=== PATIENT | male | born 1970 | race Caucasian/White ===

== ENCOUNTER 2021-09-30 12:21 | Inpatient (IN) ==
[2021-09-30] MEDS ORDERED: *HR* Dextrose 50 % in Water (Syg) 50 ML SYRINGE IVP PRN (15:51)
[2021-09-30] MEDS ORDERED: Dextrose 4 GM Chewable Tablets PO PRN ×2 (15:51)
[2021-09-30] MEDS ORDERED: D5% in Water 1,000 ML IVC PRN (15:51)
[2021-09-30] MEDS: Insulin LISPRO 300 UNITS/3 ML VIAL SUBQ SCH ×2 (20:41→20:45)
[2021-09-30] MEDS: Calcium Acetate 667 MG CAPSULE PO SCH (20:55)
[2021-09-30] MEDS: Acetaminophen 325 MG TABLET PO PRN (20:55)
[2021-09-30] MEDS: *HR* Amiodarone 200 MG TABLET PO SCH (20:56)
[2021-09-30] MEDS: FLUoxetine 20 MG CAPSULE PO SCH (20:56)
[2021-10-01] MEDS: *HR* Heparin 5,000 UNIT/ML VIAL SQ SCH ×4 (00:29→23:11)
[2021-10-01] MEDS: Ondansetron ODT 4 MG TAB.RAPDIS SL PRN (02:50)
[2021-10-01] MEDS ORDERED: *HR* OxyCODONE Immed Rel 5 MG TABLET PO ONE (02:52)
[2021-10-01 08:14] LABS: Basophils % 0.3 %; Eosinophils # 0.4 K/mcL (0.0-0.6); Eosinophils % 3.6 %; Hematocrit 30.4 % (37.5-50.1); Hemoglobin 9.6 g/dL (12.9-16.9); Lymphocytes # 1.5 K/mcL (0.6-4.6); Lymphocytes % 11.9 %; Mean Corpuscular HGB Conc 31.6 g/dL (31.6-35.5); Mean Corpuscular Hemoglobin 31.8 pg (28.0-33.3); Mean Corpuscular Volume 100.7 fL (83.0-100.0); Mean Platelet Volume 11.6 fL (9.4-12.4); Neutrophils # 9.1 K/mcL (1.6-8.9); Platelet Count 142 K/mcL (140-400); Red Blood Count 3.02 M/mcL (4.19-5.50); Red Cell Distribution Width 13.4 % (11.5-14.5); Segmented Neutrophils % 74.2 %; White Blood Count 12.3 K/mcL (4.3-11.1)
[2021-10-01] MEDS: Insulin LISPRO 300 UNITS/3 ML VIAL SUBQ SCH ×4 (08:33→21:15)
[2021-10-01] MEDS: Calcium Acetate 667 MG CAPSULE PO SCH ×5 (08:35→16:53)
[2021-10-01] MEDS: FLUoxetine 20 MG CAPSULE PO SCH ×2 (08:35→23:10)
[2021-10-01] MEDS: Cyanocobalamin (B-12) 1,000 MCG TABLET PO SCH (08:36)
[2021-10-01] MEDS: *HR* HYDROcodone/Acet 5/325 mg TABLET PO PRN ×2 (08:38→20:42)
[2021-10-01] MEDS: *HR* Amiodarone 200 MG TABLET PO SCH ×2 (08:38→23:11)
[2021-10-01] MEDS: Aspirin Enteric Coated 81 MG Tablet PO SCH (08:39)
[2021-10-01] MEDS: allopurinoL 100 MG TABLET PO SCH (08:39)
[2021-10-01 08:58] LABS: Calcium 9.5 mg/dL (8.6-10.3); Potassium 5.3 mEq/L (3.5-5.1)
[2021-10-01] MEDS: Gabapentin 100 MG CAPSULE PO SCH ×2 (16:53→23:11)
[2021-10-01] MEDS: Acetaminophen 325 MG TABLET PO PRN (16:53)
[2021-10-02] MEDS: Acetaminophen 325 MG TABLET PO PRN (06:12)
[2021-10-02] MEDS: *HR* Heparin 5,000 UNIT/ML VIAL SQ SCH ×3 (06:13→21:33)
[2021-10-02] MEDS: Insulin LISPRO 300 UNITS/3 ML VIAL SUBQ SCH ×4 (07:31→21:35)
[2021-10-02] MEDS: Calcium Acetate 667 MG CAPSULE PO SCH ×3 (07:52→16:09)
[2021-10-02] MEDS: *HR* Amiodarone 200 MG TABLET PO SCH ×2 (07:53→21:34)
[2021-10-02] MEDS: Aspirin Enteric Coated 81 MG Tablet PO SCH (07:53)
[2021-10-02] MEDS: FLUoxetine 20 MG CAPSULE PO SCH ×2 (07:54→21:34)
[2021-10-02] MEDS: Gabapentin 100 MG CAPSULE PO SCH ×3 (07:54→21:34)
[2021-10-02] MEDS: allopurinoL 100 MG TABLET PO SCH (07:54)
[2021-10-02] MEDS: Cyanocobalamin (B-12) 1,000 MCG TABLET PO SCH (07:54)
[2021-10-02] MEDS: *HR* HYDROcodone/Acet 5/325 mg TABLET PO PRN ×2 (09:17→18:50)
[2021-10-02] MEDS: Ondansetron ODT 4 MG TAB.RAPDIS SL PRN (18:42)
[2021-10-03] MEDS: *HR* Heparin 5,000 UNIT/ML VIAL SQ SCH ×3 (06:25→21:56)
[2021-10-03] MEDS: *HR* HYDROcodone/Acet 5/325 mg TABLET PO PRN ×2 (06:31→21:56)
[2021-10-03] MEDS: Insulin LISPRO 300 UNITS/3 ML VIAL SUBQ SCH ×4 (08:24→19:49)
[2021-10-03] MEDS: Aspirin Enteric Coated 81 MG Tablet PO SCH (08:30)
[2021-10-03] MEDS: FLUoxetine 20 MG CAPSULE PO SCH ×2 (08:30→19:48)
[2021-10-03] MEDS: Calcium Acetate 667 MG CAPSULE PO SCH ×3 (08:30→16:40)
[2021-10-03] MEDS: allopurinoL 100 MG TABLET PO SCH (08:30)
[2021-10-03] MEDS: Cyanocobalamin (B-12) 1,000 MCG TABLET PO SCH (08:30)
[2021-10-03] MEDS: Gabapentin 100 MG CAPSULE PO SCH ×3 (08:30→19:49)
[2021-10-03] MEDS: *HR* Amiodarone 200 MG TABLET PO SCH ×2 (08:30→19:50)
[2021-10-04] MEDS: *HR* HYDROcodone/Acet 5/325 mg TABLET PO PRN ×2 (05:44→19:52)
[2021-10-04] MEDS: *HR* Heparin 5,000 UNIT/ML VIAL SQ SCH ×3 (05:44→21:13)
[2021-10-04] MEDS: Insulin LISPRO 300 UNITS/3 ML VIAL SUBQ SCH ×5 (07:12→21:05)
[2021-10-04] MEDS: Aspirin Enteric Coated 81 MG Tablet PO SCH (09:05)
[2021-10-04] MEDS: *HR* Amiodarone 200 MG TABLET PO SCH ×2 (09:06→21:05)
[2021-10-04] MEDS: Calcium Acetate 667 MG CAPSULE PO SCH ×3 (09:06→16:38)
[2021-10-04] MEDS: Gabapentin 100 MG CAPSULE PO SCH ×3 (09:07→21:04)
[2021-10-04] MEDS: FLUoxetine 20 MG CAPSULE PO SCH ×2 (09:07→21:04)
[2021-10-04] MEDS: Cyanocobalamin (B-12) 1,000 MCG TABLET PO SCH (09:08)
[2021-10-04] MEDS: allopurinoL 100 MG TABLET PO SCH (09:09)
[2021-10-05] MEDS: *HR* Heparin 5,000 UNIT/ML VIAL SQ SCH ×3 (05:49→20:26)
[2021-10-05] MEDS: Insulin LISPRO 300 UNITS/3 ML VIAL SUBQ SCH ×4 (07:45→19:40)
[2021-10-05] MEDS: FLUoxetine 20 MG CAPSULE PO SCH ×2 (09:00→20:05)
[2021-10-05] MEDS: Gabapentin 100 MG CAPSULE PO SCH ×2 (09:01→20:26)
[2021-10-05] MEDS: allopurinoL 100 MG TABLET PO SCH (09:01)
[2021-10-05] MEDS: Cyanocobalamin (B-12) 1,000 MCG TABLET PO SCH (09:01)
[2021-10-05] MEDS: *HR* Amiodarone 200 MG TABLET PO SCH ×2 (09:01→20:06)
[2021-10-05] MEDS: Calcium Acetate 667 MG CAPSULE PO SCH ×3 (09:01→17:30)
[2021-10-05] MEDS: Aspirin Enteric Coated 81 MG Tablet PO SCH (09:01)
[2021-10-05] MEDS: *HR* HYDROcodone/Acet 5/325 mg TABLET PO PRN ×2 (09:02→20:06)
[2021-10-05] MEDS ORDERED: Lactulose Oral Soln 20 GM/30 ML UDC PO PRN (16:53)
[2021-10-05] MEDS ORDERED: Bisacodyl 10 MG RECTAL SUPPOSITORY RC PRN (16:53)
[2021-10-05] MEDS: polyethylene glycoL 3350 17 GM POWD.PACK PO SCH (17:30)
[2021-10-05] MEDS: Sennosides/Docusate Sodium TABLET PO SCH (20:25)
[2021-10-06] MEDS: *HR* Heparin 5,000 UNIT/ML VIAL SQ SCH ×3 (06:11→20:53)
[2021-10-06 07:30] LABS: Hematocrit 27.2 % (37.5-50.1); Hemoglobin 8.5 g/dL (12.9-16.9); Mean Corpuscular HGB Conc 31.3 g/dL (31.6-35.5); Mean Corpuscular Hemoglobin 31.6 pg (28.0-33.3); Mean Corpuscular Volume 101.1 fL (83.0-100.0); Mean Platelet Volume 11.7 fL (9.4-12.4); Platelet Count 159 K/mcL (140-400); Red Blood Count 2.69 M/mcL (4.19-5.50); Red Cell Distribution Width 13.6 % (11.5-14.5); White Blood Count 12.3 K/mcL (4.3-11.1)
[2021-10-06] MEDS: Insulin LISPRO 300 UNITS/3 ML VIAL SUBQ SCH ×4 (07:41→21:37)
[2021-10-06 07:56] LABS: Calcium 8.7 mg/dL (8.6-10.3); Potassium 5.5 mEq/L (3.5-5.1)
[2021-10-06] MEDS: Furosemide 40 MG TABLET PO SCH (08:34)
[2021-10-06] MEDS: polyethylene glycoL 3350 17 GM POWD.PACK PO SCH (08:34)
[2021-10-06] MEDS: Gabapentin 100 MG CAPSULE PO SCH ×2 (08:35→20:52)
[2021-10-06] MEDS: FLUoxetine 20 MG CAPSULE PO SCH ×2 (08:35→20:52)
[2021-10-06] MEDS: Aspirin Enteric Coated 81 MG Tablet PO SCH (08:35)
[2021-10-06] MEDS: Cyanocobalamin (B-12) 1,000 MCG TABLET PO SCH (08:35)
[2021-10-06] MEDS: Sennosides/Docusate Sodium TABLET PO SCH ×2 (08:36→20:52)
[2021-10-06] MEDS: *HR* Amiodarone 200 MG TABLET PO SCH ×2 (08:36→20:52)
[2021-10-06] MEDS: allopurinoL 100 MG TABLET PO SCH (08:36)
[2021-10-06] MEDS: Calcium Acetate 667 MG CAPSULE PO SCH ×3 (08:36→17:05)
[2021-10-06 20:12] VITALS: PULSE 65; RESP 18
[2021-10-07] MEDS: *HR* HYDROcodone/Acet 5/325 mg TABLET PO PRN (04:40)
[2021-10-07] MEDS: *HR* Heparin 5,000 UNIT/ML VIAL SQ SCH (05:23)
[2021-10-07 06:49] VITALS: BP 124/67; TEMP 97.6; O2SAT 92
[2021-10-07] MEDS: Calcium Acetate 667 MG CAPSULE PO SCH (08:30)
[2021-10-07] MEDS: Cyanocobalamin (B-12) 1,000 MCG TABLET PO SCH (08:31)
[2021-10-07] MEDS: Aspirin Enteric Coated 81 MG Tablet PO SCH (08:31)
[2021-10-07] MEDS: FLUoxetine 20 MG CAPSULE PO SCH (08:31)
[2021-10-07] MEDS: allopurinoL 100 MG TABLET PO SCH (08:32)
[2021-10-07] MEDS: Sennosides/Docusate Sodium TABLET PO SCH (08:32)
[2021-10-07] MEDS: Gabapentin 100 MG CAPSULE PO SCH (08:32)
[2021-10-07] MEDS: Furosemide 40 MG TABLET PO SCH (08:32)
[2021-10-07] MEDS: *HR* Amiodarone 200 MG TABLET PO SCH (08:32)
[2021-10-07] MEDS: polyethylene glycoL 3350 17 GM POWD.PACK PO SCH (08:32)
[2021-10-07] MEDS: Insulin LISPRO 300 UNITS/3 ML VIAL SUBQ SCH (08:55)
== END 2021-10-07 10:01 | disposition short-term general hospital (02) | DRG 64 ==
LOC: INPPIK 19:37
PROVIDERS: ADMIT Family Medicine; ATTEND Family Medicine

== ENCOUNTER 2021-10-18 12:03 | Inpatient (IN) ==
[2021-10-18] MEDS ORDERED: D5% in Water 1,000 ML IVC PRN (14:53)
[2021-10-18] MEDS ORDERED: Dextrose 4 GM Chewable Tablets PO PRN ×2 (14:53)
[2021-10-18] MEDS ORDERED: *HR* Dextrose 50 % in Water (Syg) 50 ML SYRINGE IVP PRN (14:53)
[2021-10-18] MEDS: Insulin LISPRO 300 UNITS/3 ML VIAL SUBQ SCH ×2 (17:32→21:47)
[2021-10-18] MEDS: carvediloL 6.25 MG TABLET PO SCH (17:37)
[2021-10-18] MEDS: Calcium Acetate 667 MG CAPSULE PO SCH (17:37)
[2021-10-18] MEDS: *HR* Amiodarone 200 MG TABLET PO SCH (21:46)
[2021-10-19] MEDS: Melatonin 3 MG TABLET PO SCH ×2 (03:09→20:39)
[2021-10-19 06:55] LABS: Basophils % 0.3 %; Eosinophils # 0.3 K/mcL (0.0-0.6); Eosinophils % 4.9 %; Hematocrit 23.7 % (37.5-50.1); Hemoglobin 7.5 g/dL (12.9-16.9); Immature Granulocytes % 1.4 % (0-4); Lymphocytes # 1.2 K/mcL (0.6-4.6); Lymphocytes % 18.4 %; Mean Corpuscular HGB Conc 31.6 g/dL (31.6-35.5); Mean Corpuscular Hemoglobin 32.2 pg (28.0-33.3); Mean Corpuscular Volume 101.7 fL (83.0-100.0); Mean Platelet Volume 10.6 fL (9.4-12.4); Monocytes # 0.6 K/mcL (0.0-1.3); Monocytes % 8.9 %; Neutrophils # 4.2 K/mcL (1.6-8.9); Platelet Count 144 K/mcL (140-400); Red Blood Count 2.33 M/mcL (4.19-5.50); Segmented Neutrophils % 66.1 %; White Blood Count 6.3 K/mcL (4.3-11.1)
[2021-10-19 07:13] LABS: Calcium 9.7 mg/dL (8.6-10.3); Potassium 4.8 mEq/L (3.5-5.1)
[2021-10-19] MEDS: Insulin LISPRO 300 UNITS/3 ML VIAL SUBQ SCH ×4 (07:42→20:39)
[2021-10-19] MEDS: Calcium Acetate 667 MG CAPSULE PO SCH ×3 (07:56→17:18)
[2021-10-19] MEDS: *HR* Amiodarone 200 MG TABLET PO SCH ×2 (07:57→20:39)
[2021-10-19] MEDS: carvediloL 6.25 MG TABLET PO SCH ×2 (07:57→18:04)
[2021-10-19] MEDS: Aspirin Enteric Coated 81 MG Tablet PO SCH (08:20)
[2021-10-19] MEDS: allopurinoL 100 MG TABLET PO SCH (08:20)
[2021-10-19] MEDS: FLUoxetine 20 MG CAPSULE PO SCH (08:20)
[2021-10-19] MEDS ORDERED: Furosemide 40 MG TABLET PO SCH (09:00)
[2021-10-19] MEDS: Furosemide 40 MG TABLET PO SCH (18:04)
[2021-10-20] MEDS: Insulin LISPRO 300 UNITS/3 ML VIAL SUBQ SCH ×4 (07:22→20:36)
[2021-10-20] MEDS: Calcium Acetate 667 MG CAPSULE PO SCH ×3 (09:58→17:09)
[2021-10-20] MEDS: Furosemide 40 MG TABLET PO SCH ×2 (09:58→17:09)
[2021-10-20] MEDS: allopurinoL 100 MG TABLET PO SCH (09:58)
[2021-10-20] MEDS: FLUoxetine 20 MG CAPSULE PO SCH (09:58)
[2021-10-20] MEDS: carvediloL 6.25 MG TABLET PO SCH ×2 (09:58→17:09)
[2021-10-20] MEDS: Aspirin Enteric Coated 81 MG Tablet PO SCH (09:58)
[2021-10-20] MEDS: *HR* Amiodarone 200 MG TABLET PO SCH ×2 (09:58→20:36)
[2021-10-20] MEDS: Melatonin 3 MG TABLET PO SCH (20:36)
[2021-10-21] MEDS: FLUoxetine 20 MG CAPSULE PO SCH (08:07)
[2021-10-21] MEDS: Aspirin Enteric Coated 81 MG Tablet PO SCH (08:07)
[2021-10-21] MEDS: Calcium Acetate 667 MG CAPSULE PO SCH ×3 (08:08→17:06)
[2021-10-21] MEDS: Insulin LISPRO 300 UNITS/3 ML VIAL SUBQ SCH ×4 (08:09→21:03)
[2021-10-21] MEDS: carvediloL 6.25 MG TABLET PO SCH ×2 (08:09→16:59)
[2021-10-21] MEDS: *HR* Amiodarone 200 MG TABLET PO SCH ×2 (08:10→21:03)
[2021-10-21] MEDS: Furosemide 40 MG TABLET PO SCH ×2 (08:10→16:58)
[2021-10-21] MEDS: allopurinoL 100 MG TABLET PO SCH (08:11)
[2021-10-21] MEDS: Melatonin 3 MG TABLET PO SCH (21:03)
[2021-10-22] MEDS: Insulin LISPRO 300 UNITS/3 ML VIAL SUBQ SCH ×4 (08:10→20:33)
[2021-10-22] MEDS: FLUoxetine 20 MG CAPSULE PO SCH (08:19)
[2021-10-22] MEDS: Calcium Acetate 667 MG CAPSULE PO SCH ×3 (08:19→16:53)
[2021-10-22] MEDS: Aspirin Enteric Coated 81 MG Tablet PO SCH (08:21)
[2021-10-22] MEDS: carvediloL 6.25 MG TABLET PO SCH ×2 (08:22→16:52)
[2021-10-22] MEDS: *HR* Amiodarone 200 MG TABLET PO SCH ×2 (08:22→20:47)
[2021-10-22] MEDS: Furosemide 40 MG TABLET PO SCH ×2 (08:22→16:53)
[2021-10-22] MEDS: allopurinoL 100 MG TABLET PO SCH (08:22)
[2021-10-22] MEDS: Melatonin 3 MG TABLET PO SCH (20:47)
[2021-10-23] MEDS: Insulin LISPRO 300 UNITS/3 ML VIAL SUBQ SCH ×4 (07:48→20:24)
[2021-10-23] MEDS: FLUoxetine 20 MG CAPSULE PO SCH (08:12)
[2021-10-23] MEDS: carvediloL 6.25 MG TABLET PO SCH ×2 (08:12→17:10)
[2021-10-23] MEDS: Calcium Acetate 667 MG CAPSULE PO SCH ×3 (08:13→17:10)
[2021-10-23] MEDS: Aspirin Enteric Coated 81 MG Tablet PO SCH (08:13)
[2021-10-23] MEDS: *HR* Amiodarone 200 MG TABLET PO SCH ×2 (08:13→20:24)
[2021-10-23] MEDS: allopurinoL 100 MG TABLET PO SCH (08:13)
[2021-10-23] MEDS: Furosemide 40 MG TABLET PO SCH ×2 (08:13→17:10)
[2021-10-23] MEDS: Melatonin 3 MG TABLET PO SCH (20:24)
[2021-10-24] MEDS: Insulin LISPRO 300 UNITS/3 ML VIAL SUBQ SCH ×4 (08:26→21:26)
[2021-10-24] MEDS: Furosemide 40 MG TABLET PO SCH ×2 (08:27→16:38)
[2021-10-24] MEDS: Aspirin Enteric Coated 81 MG Tablet PO SCH (08:27)
[2021-10-24] MEDS: allopurinoL 100 MG TABLET PO SCH (08:27)
[2021-10-24] MEDS: *HR* Amiodarone 200 MG TABLET PO SCH ×2 (08:27→21:24)
[2021-10-24] MEDS: Calcium Acetate 667 MG CAPSULE PO SCH ×3 (08:27→16:38)
[2021-10-24] MEDS: carvediloL 6.25 MG TABLET PO SCH ×2 (08:27→16:38)
[2021-10-24] MEDS: FLUoxetine 20 MG CAPSULE PO SCH (08:28)
[2021-10-24] MEDS: Melatonin 3 MG TABLET PO SCH (21:24)
[2021-10-25] MEDS: Calcium Acetate 667 MG CAPSULE PO SCH ×3 (09:50→16:52)
[2021-10-25] MEDS: Furosemide 40 MG TABLET PO SCH ×2 (09:59→16:52)
[2021-10-25] MEDS: FLUoxetine 20 MG CAPSULE PO SCH (09:59)
[2021-10-25] MEDS: allopurinoL 100 MG TABLET PO SCH (09:59)
[2021-10-25] MEDS: carvediloL 6.25 MG TABLET PO SCH ×2 (09:59→16:52)
[2021-10-25] MEDS: *HR* Amiodarone 200 MG TABLET PO SCH ×2 (09:59→19:38)
[2021-10-25] MEDS: Aspirin Enteric Coated 81 MG Tablet PO SCH (09:59)
[2021-10-25] MEDS: Insulin LISPRO 300 UNITS/3 ML VIAL SUBQ SCH ×4 (10:02→19:39)
[2021-10-25] MEDS: Melatonin 3 MG TABLET PO SCH (19:38)
[2021-10-26] MEDS: Insulin LISPRO 300 UNITS/3 ML VIAL SUBQ SCH ×4 (07:34→23:06)
[2021-10-26] MEDS: Aspirin Enteric Coated 81 MG Tablet PO SCH (08:16)
[2021-10-26] MEDS: FLUoxetine 20 MG CAPSULE PO SCH (08:16)
[2021-10-26] MEDS: Furosemide 40 MG TABLET PO SCH ×2 (08:16→18:55)
[2021-10-26] MEDS: carvediloL 6.25 MG TABLET PO SCH ×2 (08:16→18:55)
[2021-10-26] MEDS: allopurinoL 100 MG TABLET PO SCH (08:17)
[2021-10-26] MEDS: Calcium Acetate 667 MG CAPSULE PO SCH ×3 (08:17→17:16)
[2021-10-26] MEDS: *HR* Amiodarone 200 MG TABLET PO SCH ×2 (08:17→23:05)
[2021-10-26] MEDS: Melatonin 3 MG TABLET PO SCH (23:05)
[2021-10-27] MEDS: Insulin LISPRO 300 UNITS/3 ML VIAL SUBQ SCH ×4 (08:27→22:57)
[2021-10-27] MEDS: *HR* Amiodarone 200 MG TABLET PO SCH ×2 (08:36→22:56)
[2021-10-27] MEDS: Furosemide 40 MG TABLET PO SCH ×2 (08:37→16:50)
[2021-10-27] MEDS: FLUoxetine 20 MG CAPSULE PO SCH (08:37)
[2021-10-27] MEDS: Aspirin Enteric Coated 81 MG Tablet PO SCH (08:37)
[2021-10-27] MEDS: allopurinoL 100 MG TABLET PO SCH (08:37)
[2021-10-27] MEDS: carvediloL 6.25 MG TABLET PO SCH ×2 (08:38→16:50)
[2021-10-27] MEDS: Calcium Acetate 667 MG CAPSULE PO SCH ×3 (08:38→16:49)
[2021-10-27] MEDS: Melatonin 3 MG TABLET PO SCH (22:56)
[2021-10-28] MEDS: Insulin LISPRO 300 UNITS/3 ML VIAL SUBQ SCH ×4 (08:00→20:06)
[2021-10-28] MEDS: Aspirin Enteric Coated 81 MG Tablet PO SCH (08:09)
[2021-10-28] MEDS: *HR* Amiodarone 200 MG TABLET PO SCH ×2 (08:09→20:06)
[2021-10-28] MEDS: FLUoxetine 20 MG CAPSULE PO SCH (08:09)
[2021-10-28] MEDS: Furosemide 40 MG TABLET PO SCH ×2 (08:10→18:06)
[2021-10-28] MEDS: carvediloL 6.25 MG TABLET PO SCH ×2 (08:10→18:06)
[2021-10-28] MEDS: allopurinoL 100 MG TABLET PO SCH (08:10)
[2021-10-28] MEDS: Calcium Acetate 667 MG CAPSULE PO SCH ×3 (08:10→18:06)
[2021-10-28] MEDS: Melatonin 3 MG TABLET PO SCH (20:05)
[2021-10-28 20:09] VITALS: O2SAT 98
[2021-10-29 08:03] VITALS: BP 139/82; PULSE 84; RESP 16; TEMP 97.8
[2021-10-29] MEDS: Insulin LISPRO 300 UNITS/3 ML VIAL SUBQ SCH ×2 (08:23→11:44)
[2021-10-29] MEDS: carvediloL 6.25 MG TABLET PO SCH (08:34)
[2021-10-29] MEDS: Furosemide 40 MG TABLET PO SCH (08:34)
[2021-10-29] MEDS: *HR* Amiodarone 200 MG TABLET PO SCH (08:35)
[2021-10-29] MEDS: allopurinoL 100 MG TABLET PO SCH (08:35)
[2021-10-29] MEDS: FLUoxetine 20 MG CAPSULE PO SCH (08:35)
[2021-10-29] MEDS: Calcium Acetate 667 MG CAPSULE PO SCH ×2 (08:36→11:49)
[2021-10-29] MEDS: Aspirin Enteric Coated 81 MG Tablet PO SCH (08:36)
== END 2021-10-29 16:55 | disposition home or self-care (01) | DRG 64 ==
LOC: INPPIK 14:56
PROVIDERS: ADMIT Family Medicine; ATTEND Family Medicine